=== PATIENT | male | born 2000 | race Caucasian/White ===

== ENCOUNTER 2025-03-04 16:24 | Emergency (ER) | payer SELFPAY ==
[2025-03-04] MEDS ORDERED: Acetaminophen 500 MG TAB ONE (16:55)
[2025-03-04] MEDS ORDERED: Ketorolac Tromethamine 30 MG (1 mL) VIAL ONE (16:55)
[2025-03-04] MEDS ORDERED: Boostrix 0.5 ML (Tdap) VIAL (>/=7 yrs of age) ONE (16:56)
[2025-03-04] MEDS ORDERED: Lidocaine 1% w/Epinephrine 1:100K 20 ML VIAL ONE (17:24)
[2025-03-04] MEDS ORDERED: Lidocaine 1% (PF) 30 ML VIAL ONE (18:00)
== END 2025-03-04 20:05 | disposition home or self-care (01) ==
LOC: ERS 16:24
DX: S67.190A Crushing injury of right index finger, initial encounter (principal); S67.192A Crushing injury of right middle finger, initial encounter; S62.632A Displaced fracture of distal phalanx of right middle finger, initial encounter for closed fracture; S62.630A Displaced fracture of distal phalanx of right index finger, initial encounter for closed fracture; S61.310A Laceration without foreign body of right index finger with damage to nail, initial encounter; S61.312A Laceration without foreign body of right middle finger with damage to nail, initial encounter; F17.210 Nicotine dependence, cigarettes, uncomplicated; W31.89XA Contact with other specified machinery, initial encounter; Y93.89 Activity, other specified; Y92.69 Other specified industrial and construction area as the place of occurrence of the external cause; Z23 Encounter for immunization
CPT/HCPCS: 11760; 90471; 90715; 96372; J1885

== ENCOUNTER 2025-03-06 14:43 | Emergency (ER) | payer OTHER, SELFPAY | END 2025-03-06 17:57 | disposition home or self-care (01) | LOC: ERS 14:43 | DX: S62.630D Displaced fracture of distal phalanx of right index finger, subsequent encounter for fracture with routine healing (principal); S62.632D Displaced fracture of distal phalanx of right middle finger, subsequent encounter for fracture with routine healing; S61.310D Laceration without foreign body of right index finger with damage to nail, subsequent encounter; S61.312D Laceration without foreign body of right middle finger with damage to nail, subsequent encounter; F17.290 Nicotine dependence, other tobacco product, uncomplicated; W31.89XD Contact with other specified machinery, subsequent encounter | CPT/HCPCS: 99282 ==